=== PATIENT | male | born 1950 | race Caucasian/White ===

== ENCOUNTER → 2021-12-12 | Day surgery (SDC) | payer OTHER ==
[~2021-12-12] VITALS: Ht 182.9 cm; Wt 92.1 kg
[~2021-12-12] MED LIST: ELIQUIS2.5 MG PO; PERCOCET 10-321 EACH PO
== END | disposition home or self-care (01) ==
LOC: OR 05:50
DX: Z12.11 Encounter for screening for malignant neoplasm of colon (principal); K57.30 Diverticulosis of large intestine without perforation or abscess without bleeding; F17.210 Nicotine dependence, cigarettes, uncomplicated
CPT/HCPCS: J2704